=== PATIENT | female | born 1975 | race Two or more races ===

== ENCOUNTER 2016-10-12 09:17 | Emergency (ER) | payer MEDICAID ==
[~2016-10-12] VITALS: Ht 157.5 cm; Wt 90.7 kg
[~2016-10-12 09:17] MED LIST: CEPHALEXIN500 MG ORAL; CYCLOBENZAPRINE10 MG ORAL; IBUPROFEN600 M1 PO; IBUPROFEN600 MG ORAL; NKM; NORCO 5-325 TA1 EACH ORAL; NORCO1 EA ORAL; TRAMADOL HCL50 MG ORAL
[2016-10-12 09:26] VITALS: BP 114/68
[2016-10-12] MEDS ORDERED: AZITHROMYCIN250 MG ORAL (10:26)
[2016-10-12 10:45] VITALS: BP 123/79
--- NOTE | 2016-10-13 07:43 | Emergency Room Report ---
History of Present Illness General Chief Complaint: Upper Respiratory Illness Source: Patient Present Illness HPI 41-year-old female presents to ED complaining of cough and congestion x2 weeks. Notes a yellowish productive cough. Notes intermittent fevers and chills. Denies earache or sore throat. Denies sick contacts or recent travel. No other aggravating or relieving factors. Denies any other associated symptoms Allergies: Coded Allergies: NO KNOWN ALLERGIES (Verified Allergy, 05/30/13) Patient History Past Medical History: none Past Surgical History: none Pertinent Family History: none Social History: Denies: alcohol use, drug use, smoking Last Menstrual Period: 2 weeks ago Now: No Immunizations: UTD Reviewed Nursing Documentation: PMH: Agreed, PSxH: Agreed Nursing Documentation-PMH Past Medical History: No Stated History Hx COPD: No - BRONCHITIS Hx Neurological Problems: Yes - CHRONIC KNEE PROBLEMS Review of Systems All Other Systems: negative except mentioned in HPI Physical Exam Vital Signs Date Time Temp Pulse Resp B/P Pulse Ox O2 Delivery O2 Flow Rate FiO2 10/12/16 09:26 97.9 82 14 114/68 98 Room Air Sp02 EP Interpretation: reviewed, normal General Appearance: no apparent distress, alert, GCS 15, non-toxic Head: normocephalic Eyes: bilateral eye PERRL, bilateral eye normal inspection ENT: hearing grossly normal, normal pharynx, no angioedema, normal voice Neck: full range of motion, supple/symm/no masses Respiratory: chest non-tender, lungs clear, normal breath sounds, speaking full sentences Cardiovascular #1: regular rate, rhythm, no edema Gastrointestinal: normal bowel sounds, non tender, soft, non-distended, no guarding, no rebound Rectal: deferred Genitourinary: no CVA tenderness Musculoskeletal: normal inspection Neurologic: alert, oriented x3, responsive, motor strength/tone normal, sensory intact, speech normal Psychiatric: normal inspection Skin: normal inspection Lymphatic: normal inspection Medical Decision Making Diagnostic Impression: Primary Impression: Atypical pneumonia ER Course Hospital Course 41-year-old female presents to ED complaining of productive cough, intermittent chills, weakness Differential diagnoses include: URI, pharyngitis, otitis media, asthma Clinical course Patient placed on stretcher. After initial history, physical exam reveals a female in no acute distress. Bilateral TM unremarkable. No pharyngeal erythema. No tonsillar exudates. No lymphadenopathy. lungs clear. abdomen soft. Given productive cough with chills and symptoms persisting for 2 weeks. We'll treat his atypical pneumonia Diagnosis - atypical pneumonia Stable and discharged home with Rx Ariel. Instructed to followup with PMD. Return to ED if symptoms recur or worsen Last Vital Signs Date Time Temp Pulse Resp B/P Pulse Ox O2 Delivery O2 Flow Rate FiO2 10/12/16 10:45 81 14 123/79 97 Room Air 10/12/16 09:26 97.9 Status: improved Disposition: HOME, SELF-CARE Condition: Stable Scripts Azithromycin* (ZITHROMAX*) 250 Mg Tablet 250 MG ORAL DAILY, #6 TAB 0 Refills Take two tablets by mouth today, then take one tablet by mouth daily for four days Prov: MAK DELGADO M.D. 10/12/16 Patient Instructions: Community-Acquired Pneumonia, Adult, [id number] MAK DELGADO M.D. Oct 13, 2016 07:43
== END 2016-10-12 10:48 | disposition home or self-care (01) ==
LOC: EMR 09:58
DX: J18.9 Pneumonia, unspecified organism (principal)
CPT/HCPCS: 99283

== ENCOUNTER 2016-10-31 20:45 | Emergency (ER) | payer MEDICAID ==
[~2016-10-31] VITALS: Ht 157.5 cm; Wt 88.5 kg
[~2016-10-31 20:45] MED LIST changes: +AZITHROMYCIN250 MG ORAL
[2016-10-31] MEDS ORDERED: IBUPROFEN800 MG ORAL (21:56)
[2016-10-31] MEDS ORDERED: ROBAXIN-750750 MG PO (21:56)
[2016-10-31] MEDS ORDERED: PERCOCET 5-3251 EACH ORAL (21:56)
[2016-10-31] MEDS ORDERED: Oxycodone/Acetaminophen 5-325 ORAL ONE (22:00)
[2016-10-31] MEDS ORDERED: Ketorolac 60mg Inj IM ONE (22:00)
--- NOTE | 2016-10-31 22:05 | Emergency Room Report ---
History of Present Illness General Chief Complaint: Chest Pain Source: Patient, Medical Record Present Illness HPI 41 YO F with 2 weeks of left upper back pain, 8/10, worse with movement, reproducible, worse with "cold weather," worse in morning, better after moving around. 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 Been taking Ibuprofen. Last took yesterday, minimal improvement. Denies chest pain, SOB, abd pain Per EMR was here recently, tx for Atypical PNA with Azithro, finished that course. Has been here multiple times for various MSK type complaints. Denies CAD risk factors - denies HTN, DM, HLD, smoking, ETOH, drug use. Allergies: Coded Allergies: NO KNOWN ALLERGIES (Verified Allergy, 05/30/13) Patient History Past Medical History: none Past Surgical History: none Pertinent Family History: none Social History: Denies: alcohol use, drug use, smoking Last Menstrual Period: 10/28/2016 Now: No : 3 Para: 3 Immunizations: UTD Reviewed Nursing Documentation: PMH: Agreed, PSxH: Agreed Nursing Documentation-PMH Hx COPD: No - BRONCHITIS Hx Neurological Problems: Yes - CHRONIC KNEE PROBLEMS Review of Systems All Other Systems: negative except mentioned in HPI Physical Exam Vital Signs Date Time Temp Pulse Resp B/P Pulse Ox O2 Delivery O2 Flow Rate FiO2 10/31/16 21:18 97.7 78 18 128/81 100 Room Air Sp02 EP Interpretation: reviewed, normal General Appearance: normal inspection, well appearing, no apparent distress, alert, GCS 15, non-toxic Head: normocephalic, atraumatic Eyes: bilateral eye EOMI, bilateral eye PERRL ENT: normal ENT inspection, hearing grossly normal, normal voice Neck: normal inspection, full range of motion, supple, no bony tend Respiratory: normal inspection, lungs clear, normal breath sounds, no rhonchi, no respiratory distress, no retraction, no accessory muscle use, no wheezing Cardiovascular #1: regular rate, rhythm, no edema Gastrointestinal: normal inspection, normal bowel sounds, non tender, soft, no guarding, no hernia Genitourinary: no CVA tenderness Musculoskeletal: normal inspection, Debbie's Sign negative, other - Left upper back: Significant ttp left upper back, spasm/tightness. Worse with movement, palpation. Neurologic: normal inspection, alert, oriented x3, responsive, travel ot III-XII nml as tested, motor strength/tone normal, speech normal Psychiatric: normal inspection, judgement/insight normal, mood/affect normal Skin: normal inspection, normal color, no rash Medical Decision Making Diagnostic Impression: Primary Impression: Muscle spasm ER Course 41 YO F with MSK type pain to left upper back. Likely occupational related. Worse with movement, reproducible, and 2 weeks duration - so unlikely cardiac. ECG done as screening by RN/grocery stock clerk was NSR, no ischemia. No assoc fever/chills, cough, SOB so unlikely pleuritic or lung related. Was also just tx for PNA PO percocet and IM toradol given in ED Rx Ibuprofen/Robaxin combo with Perc as needed for severe pain Recommended PMD referral for pain emergency specialist DC home EKG Diagnostic Results Rate: normal Rhythm: NSR ST Segments: no acute changes ASA given to the pt in ED: No Last Vital Signs Date Time Temp Pulse Resp B/P Pulse Ox O2 Delivery O2 Flow Rate FiO2 10/31/16 21:18 97.7 78 18 128/81 100 Room Air Status: improved Disposition: HOME, SELF-CARE Condition: Improved Scripts Oxycodone/Acetaminophen 5-325* (PERCOCET 5-325 MG TABLET*) 1 Each Tablet 1 TAB ORAL BID Y for For Pain, #20 TAB Prov: ANITA MAYER M.D. 10/31/16 Methocarbamol* (ROBAXIN-750*) 750 Mg Tablet 750 MG PO TID, #30 TAB 0 Refills Prov: ANITA MAYER M.D. 10/31/16 Ibuprofen* (MOTRIN*) 800 Mg Tablet 800 MG ORAL THREE TIMES A DAY Y for For Pain, #30 TAB 0 Refills Prov: ANITA MAYER M.D. 10/31/16 Patient Instructions: Musculoskeletal Pain Additional Instructions: - Take high dose ibuprofen every 8 hours with Robaxin for pain - Continue to apply heat to area of pain - For severe pain, try 1 percocet twice a day - Follow up with your doctor for referral to aircraft painter apprentice ANITA MAYER M.D. Oct 31, 2016 22:05
[2016-10-31 22:40] VITALS: BP 120/78
[2016-10-31 22:44] VITALS: BP 120/78
== END 2016-10-31 22:44 | disposition home or self-care (01) ==
LOC: EMR 21:52
DX: M62.830 Muscle spasm of back (principal); M54.9 Dorsalgia, unspecified; Z87.01 Personal history of pneumonia (recurrent)
CPT/HCPCS: 96372; 99284

== ENCOUNTER 2017-03-12 09:51 | Emergency (ER) | payer MEDICAID ==
[~2017-03-12] VITALS: Ht 157.5 cm; Wt 88.5 kg
[~2017-03-12 09:51] MED LIST changes: +IBUPROFEN800 MG ORAL; +PERCOCET 5-3251 EACH ORAL; +ROBAXIN-750750 MG PO
[2017-03-12 10:02] VITALS: BP 123/80
--- NOTE | 2017-03-12 10:07 | Emergency Room Report ---
History of Present Illness General Chief Complaint: Upper Respiratory Illness Source: Patient Present Illness HPI Patient presents with cough and chest pain since last . She's not producing any phlegm. She has foul flavor in her mouth and thought she might have a fever. Her kids told her she did not have a fever. She hears a bubbling in her chest. This is worse with coughing. She's never used an inhaler before. She denies any pain or or edema. Pain in chest 4/10, somewhat pleuritic, more pressure. Not . No dysuria, rashes, headache. Allergies: Coded Allergies: NO KNOWN ALLERGIES (Verified Allergy, 05/30/13) Patient History Past Medical History: see triage record Social History: Denies: smoking Social History Narrative with kids Last Menstrual Period: 02/28/17 Now: No : 3 Para: 3 Reviewed Nursing Documentation: PMH: Agreed, PSxH: Agreed Nursing Documentation-PMH Past Medical History: No History, Except For Hx COPD: No - BRONCHITIS Hx Neurological Problems: Yes - CHRONIC KNEE PROBLEMS Review of Systems All Other Systems: negative except mentioned in HPI Physical Exam Vital Signs Date Time Temp Pulse Resp B/P Pulse Ox O2 Delivery O2 Flow Rate FiO2 03/12/17 09:52 98.8 90 20 123/80 97 Room Air Sp02 EP Interpretation: reviewed, normal General Appearance: well appearing, no apparent distress, GCS 15 Head: normocephalic Eyes: bilateral eye normal inspection ENT: normal pharynx, moist mucus membranes Neck: supple Respiratory: wheezing - post tussive wheezing Cardiovascular #1: regular rate, rhythm Cardiovascular #2: 2+ radial (R) Gastrointestinal: normal inspection, normal bowel sounds, non tender, no mass, non-distended Musculoskeletal: back normal, gait/station normal, normal range of motion Neurologic: alert, oriented x3, grossly normal Psychiatric: mood/affect normal Skin: normal inspection, warm/dry Medical Decision Making Diagnostic Impression: Primary Impression: Bronchospasm Additional Impression: Eosinophilia ER Course The patient presents with cough, wheezing and chest pain. She's never used an inhaler before. Her vital signs are tenths pulmonary embolus. Differential includes bronchitis, bronchospasm, new onset asthma amongst others. She is evaluated EKG, chest x-ray and also labs. Work up because this is new onset for her. She'll be treated with albuterol and Atrovent. Labs with eosinophilia. Solumedrol given. Repeat albuterol as still with some wheezes.. Improved. At d/c c/w throat itching. Exam no angioedema. Benadryl also added. Stable for outpatient observation and treatment. Laboratory Tests Test 03/12/17 10:37 White Blood Count 6.3 K/UL (4.8-10.8) Red Blood Count 5.04 M/UL (4.20-5.40) Hemoglobin 12.7 G/DL (12.0-16.0) Hematocrit 41.0 % (37.0-47.0) Mean Corpuscular Volume 81 FL (80-99) Mean Corpuscular Hemoglobin 25.1 PG (27.0-31.0) L Mean Corpuscular Hemoglobin Concent 30.9 G/DL (32.0-36.0) L Red Cell Distribution Width 15.5 % (11.6-14.8) H Platelet Count 312 K/UL (150-450) Mean Platelet Volume 6.6 FL (6.5-10.1) Neutrophils (%) (Auto) 43.3 % (45.0-75.0) L Lymphocytes (%) (Auto) 41.7 % (20.0-45.0) Monocytes (%) (Auto) 10.8 % (1.0-10.0) H Eosinophils (%) (Auto) 3.2 % (0.0-3.0) H Basophils (%) (Auto) 1.1 % (0.0-2.0) Sodium Level 139 mEQ/L (135-145) Potassium Level 4.1 mEQ/L (3.4-4.9) Chloride Level 102 mEQ/L (98-107) Carbon Dioxide Level 23 mEQ/L (20-30) Anion Gap 14 (5-15) Blood Urea Nitrogen 9 mg/dL (7-23) Creatinine 0.8 mg/dL (0.5-0.9) Estimate Glomerular Filtration Rate > 60 mL/min (>60) Glucose Level 135 mg/dL (74-106) H Calcium Level 8.8 mg/dL (8.6-10.2) Total Bilirubin < 0.2 mg/dL (0.0-1.2) Aspartate Amino Transferase (AST) 24 U/L (5-40) Alanine Aminotransferase (ALT) 22 U/L (3-33) Alkaline Phosphatase 100 U/L (35-104) Total Protein 7.5 g/dL (6.6-8.7) Albumin 3.9 g/dL (3.5-5.2) Globulin 3.6 g/dL Albumin/Globulin Ratio 1.0 (1.0-2.7) EKG Diagnostic Results Rate: normal Rhythm: NSR ST Segments: no acute changes Rhythm Strip Diag. Results EP Interpretation: yes Rhythm: NSR, no PVC's, no ectopy Chest X-Ray Diagnostic Results Chest X-Ray Diagnostic Results : Chest X-Ray Ordered: Yes # of Views/Limited/Complete: 1 View Indication: Shortness of Breath EP Interpretation: Yes Interpretation: no consolidation, no effusion, no pneumothorax, no acute cardiopulmonary disease Impression: No acute disease Interpreting ER Provider: Electronically signed by Dave Covington MD Last Vital Signs Date Time Temp Pulse Resp B/P Pulse Ox O2 Delivery O2 Flow Rate FiO2 03/12/17 15:15 98.8 89 20 145/73 98 Room Air Status: improved Disposition: HOME, SELF-CARE Condition: Improved Scripts Diphenhydramine Hcl* (BENADRYL*) 25 Mg Capsule 25 MG ORAL Q6H Y for Itching, #14 CAP Prov: Dave Covington M.D. 03/12/17 Albuterol Sulfate* (ALBUTEROL SULFATE MDI*) 8.5 Gm Hfa.aer.ad 2 PUFF INH Q6H, #1 EA 1 Refill Prov: Dave Covington M.D. 03/12/17 Codeine/Promethazine Hcl* (PROMETHAZINE-CODEINE SYRUP*) 118 Ml Syrup 5 ML ORAL Q6H Y for For Cough, #60 ML 0 Refills Prov: Dave Covington M.D. 03/12/17 Prednisone* (PREDNISONE*) 10 Mg Tablet 10 MG ORAL DAILY, #21 TAB 0 Refills 4 po QD X 2, 3 po QD X 2, 2 po QD X 2, 1 po QD X 4 Prov: Dave Covington M.D. 03/12/17 Dave Covington M.D. Mar 12, 2017 10:07
[2017-03-12] MEDS ORDERED: Ipratropium 0.02% Inh Soln 2.5ml UD HHN ONE (10:15)
[2017-03-12] MEDS ORDERED: Albuterol ud Inhalation HHN ONE ×2 (10:15→12:30)
[2017-03-12 10:59] VITALS: BP 118/85
[2017-03-12 11:29] LABS: BASOPHILS % (AUTO) 1.1 % (0.0-2.0); EOSINOPHILS % (AUTO) 3.2 % (0.0-3.0); LYMPHOCYTES % (AUTO) 41.7 % (20.0-45.0); MEAN CORPUSCULAR HEMOGLOBIN 25.1 PG (27.0-31.0); MEAN CORPUSCULAR HGB CONC 30.9 G/DL (32.0-36.0); MEAN CORPUSCULAR VOLUME 81 FL (80-99); MEAN PLATELET VOLUME 6.6 FL (6.5-10.1); MONOCYTES % (AUTO) 10.8 % (1.0-10.0); NEUTROPHILS % (AUTO) 43.3 % (45.0-75.0); PLATELET COUNT 312 K/UL (150-450); RED BLOOD COUNT 5.04 M/UL (4.20-5.40); RED CELL DISTRIBUTION WIDTH 15.5 % (11.6-14.8); WHITE BLOOD COUNT 6.3 K/UL (4.8-10.8)
[2017-03-12 11:31] LABS: ALANINE AMINOTRANSFERASE 22 U/L (3-33); ANION GAP 14 (5-15); ASPARTATE AMINO TRANSFERASE 24 U/L (5-40); CALCIUM 8.8 mg/dL (8.6-10.2); CARBON DIOXIDE 23 mEQ/L (20-30); CHLORIDE 102 mEQ/L (98-107); CREATININE 0.8 mg/dL (0.5-0.9); GLOMERULAR FILTRATION RATE > 60 mL/min (>60); HEMOLYSIS 13; POTASSIUM 4.1 mEQ/L (3.4-4.9); SODIUM 139 mEQ/L (135-145); TOTAL PROTEIN 7.5 g/dL (6.6-8.7)
--- NOTE | 2017-03-12 11:33 | Diagnostic Imaging Report ---
Indication: Cough Comparison: 01/03/15 2 views of the chest obtained. Findings: Cardiomediastinal silhouette and pulmonary vascularity are within normal limits for age. The diaphragmatic contour is smooth and costophrenic angles are sharp. No pleural effusions are identified. The bones are unremarkable. Impression: No acute disease
[2017-03-12] MEDS ORDERED: Solu-MEDROL 125mg Inj IVP ONE (12:30)
[2017-03-12] MEDS ORDERED: Promethazine/Codeine 5ml UD ORAL ONE (12:30)
[2017-03-12] MEDS ORDERED: PREDNISONE10 MG ORAL (12:56)
[2017-03-12] MEDS ORDERED: PROMETHAZINE-C118 M1 ORAL (12:56)
[2017-03-12] MEDS ORDERED: ALBUTEROL SULF8.5 GM INH (12:56)
[2017-03-12 13:48] VITALS: BP 151/75
[2017-03-12] MEDS ORDERED: BENADRYL25 MG ORAL (14:31)
[2017-03-12 15:15] VITALS: BP 145/73
== END 2017-03-12 15:19 | disposition home or self-care (01) ==
LOC: EMR 10:27
DX: J98.01 Acute bronchospasm (principal); D72.1 Eosinophilia; R07.9 Chest pain, unspecified
CPT/HCPCS: 36415; 71020; 80053; 85025; 93005; 94640; 96374; 96375; 99284; J2930

== ENCOUNTER → 2018-11-19 | Emergency (ER) | payer MEDICAID ==
[~2018-11-19] VITALS: Ht 157.5 cm; Wt 90.7 kg
[~2018-11-19] MED LIST changes: +ALBUTEROL SULF8.5 GM INH; +BACTROBAN CR1 APPLIC TOPIC; +BENADRYL25 MG ORAL; +Ketorolac 30mg Inj IM ONE; +PREDNISONE10 MG ORAL; +PROMETHAZINE-C118 M1 ORAL
[2018-11-19 14:23] VITALS: BP 151/92
--- NOTE | 2018-11-19 14:46 | Emergency Room Report ---
History of Present Illness General Chief Complaint: Pain Source: Medical Record Present Illness HPI 43-year-old female patient presents ER complaining of bilateral toe pain. Patient states pain is been present for the past 2 weeks following a "toe cleaning that she had. Reports that the lady who cleans her toes "cut her nails too short". Denies erythema or edema. Reports that she was sent to the ER by her physician for concern over possible gout. Denies history of gout. Denies fever, vomiting, chest pain. Denies other aggravating or relieving factors. Denies acute injury. Allergies: Coded Allergies: NO KNOWN ALLERGIES (Verified Allergy, 05/30/13) Patient History Past Medical History: see triage record Last Menstrual Period: 11/04/18 Reviewed Nursing Documentation: PMH: Agreed; PSxH: Agreed Nursing Documentation-PMH Past Medical History: No History, Except For Hx COPD: No - BRONCHITIS Hx Neurological Problems: Yes - CHRONIC KNEE PROBLEMS Review of Systems All Other Systems: negative except mentioned in HPI Physical Exam Vital Signs Date Time Temp Pulse Resp B/P (MAP) Pulse Ox O2 Delivery O2 Flow Rate FiO2 11/19/18 14:23 98.4 92 18 151/92 97 Room Air Sp02 EP Interpretation: reviewed, normal General Appearance: well appearing, no apparent distress, alert, GCS 15, non- toxic Head: normocephalic, atraumatic Eyes: bilateral eye normal inspection, bilateral eye PERRL ENT: hearing grossly normal, normal pharynx, no angioedema, normal voice, uvula midline, moist mucus membranes Neck: full range of motion, no bony tend Respiratory: lungs clear, normal breath sounds, no rhonchi, no respiratory distress, no accessory muscle use, no wheezing, speaking full sentences Cardiovascular #1: regular rate, rhythm, no edema Cardiovascular #2: 2+ dorsalis pedis (R), 2+ dorsalis pedis (L) Musculoskeletal: back normal, digits/nails normal, gait/station normal, normal range of motion, other - NVI, no gouty tophi, no overlying erythema or edema, no subungual hematoma, cuticle intact, no podgra, tender - Base of toenail of bilateral big toes, no erythema or edema Neurologic: alert, oriented x3, responsive, motor strength/tone normal, sensory intact Skin: other - No overlying erythema or edema, no gouty tophi Medical Decision Making PA Attestation Dr. Covington is my supervising Physician whom patient management has been discussed with. Diagnostic Impression: Primary Impression: Toe pain, bilateral ER Course Pt. presents to the ED c/o bilateral big toe pain. Ddx considered but are not limited to mechanical trauma, gout, cellulitis, arthritis. Vital signs: are WNL, pt. is afebrile ER COURSE: Pain likely secondary to toenails being "cut too short", this preceded symptom onset. No overlying erythema or edema, does not require oral antibiotics however will provide patient with topical antibiotics. Provide patient with pain medication in the ER. No gouty tophi, no overlying erythema or edema, pain at the base of the nail, no podagra, low suspicion for gout. ER precautions given. Follow-up with copy center operator, provided with contact information for podiatry specialist. Follow-up at scheduled appointment with primary care provider. DISCHARGE: At this time pt is stable for d/c to home. Patient is resting comfortably, in no acute distress, nontoxic appearing, talking without difficulty. Patient to take medications as instructed Will provide with patient care instructions and any necessary prescriptions. Care plan and follow-up instructions provided. Patient instructed to follow-up with primary care provider in 3 - 5 days. Patient questions asked and answered. Patient reports understanding and agreement to treatment plan. ER precautions given. Patient instructed to return to ER immediately for any new or worsening of symptoms including but not limited to increasing SOB, persistent fever, chest pain, intractable vomiting. - Please note that this Emergency Department Report was dictated using [employer] saw operator technology software, occasionally this can lead to erroneous entry secondary to interpretation by the dictation equipment. Last Vital Signs Date Time Temp Pulse Resp B/P (MAP) Pulse Ox O2 Delivery O2 Flow Rate FiO2 11/19/18 14:23 98.4 92 18 151/92 97 Room Air Status: improved Disposition: HOME, SELF-CARE Condition: Stable Scripts Ibuprofen* (MOTRIN*) 600 Mg Tablet 600 MG ORAL Q8H PRN for For Pain, #30 TAB 0 Refills Prov: Morales Granger P.A. 11/19/18 Mupirocin Calcium (Bactroban) 15 Gm Cream..g. 1 APPLIC TOPIC THREE TIMES A DAY, #15 GM Prov: Morales Granger.AJose Francisco 11/19/18 Patient Instructions: Ingrown Toenail Additional Instructions: Followup with primary care provider scheduled appointment. Follow-up with copy center operator. Take medications as directed. Patient questions asked and answered. ER precautions given, patient instructed to return to ER immediately for any new or worsening of symptoms. Morales Granger Nov 19, 2018 14:46
== END | disposition home or self-care (01) ==
LOC: EMR 14:58
DX: M79.675 Pain in left toe(s) (principal); M79.674 Pain in right toe(s)
CPT/HCPCS: 96372; 99291; J1885

== ENCOUNTER 2019-11-24 17:57 | Emergency (ER) | payer MEDICAID ==
[~2019-11-24] VITALS: Ht 167.6 cm; Wt 95.3 kg
[~2019-11-24 17:57] MED LIST changes: -Ketorolac 30mg Inj IM ONE
[2019-11-24 19:36] VITALS: BP 147/87
--- NOTE | 2019-11-24 19:36 | NUR ---
ED Nurse Note: pt ambulated into ed from home [place] rash on skin with pain over generalized body. Pt vss no ss of distress noted. No rash currently visible on face but pt provided pictures. Awaiting ERMD at bedside
--- NOTE | 2019-11-24 19:40 | NUR ---
ED Nurse Note: ERMD at bedside
--- NOTE | 2019-11-24 19:50 | Emergency Room Report ---
History of Present Illness General Chief Complaint: Skin Rash/Abscess Source: Patient Present Illness HPI 44-year-old female with no symptom past medical history who was recently seen for UTI here complaining of pruritus and rash all over her body after finishing Macrobid for UTI. Denies any anaphylaxis, asthma exacerbation, shortness of breath. Denies fever and chills or recent URI symptoms or recent travel. Denies any pain. Has not taken medication for symptom relief. Denies . COVID-19 risk:Contact w/high r: No COVID-19 risk:Travel to affect: No Has patient experienced rodriguez: No Allergies: Coded Allergies: NO KNOWN ALLERGIES (Verified Allergy, 05/30/13) Patient History Past Medical History: see triage record Past Surgical History: none Pertinent Family History: none Last Menstrual Period: 11/12/19 Now: No : 3 Para: 3 Immunizations: UTD Reviewed Nursing Documentation: PMH: Agreed; PSxH: Agreed Nursing Documentation-PMH Past Medical History: No Stated History Hx COPD: No - BRONCHITIS Hx Neurological Problems: Yes - CHRONIC KNEE PROBLEMS Review of Systems All Other Systems: negative except mentioned in HPI Physical Exam Vital Signs Date Time Temp Pulse Resp B/P (MAP) Pulse Ox O2 Delivery O2 Flow Rate FiO2 11/24/19 19:26 98.1 82 16 147/87 (107) 95 Room Air Sp02 EP Interpretation: reviewed, normal General Appearance: no apparent distress, alert, GCS 15, non-toxic Head: normocephalic, atraumatic Eyes: bilateral eye normal inspection, bilateral eye PERRL ENT: hearing grossly normal, normal pharynx, no angioedema, normal voice Neck: full range of motion, supple/symm/no masses Respiratory: chest non-tender, lungs clear, normal breath sounds, no rhonchi, no retraction, speaking full sentences Cardiovascular #1: regular rate, rhythm, no edema, no murmur Gastrointestinal: normal bowel sounds, non tender, soft, non-distended, no guarding, no rebound Rectal: deferred Genitourinary: no CVA tenderness Musculoskeletal: back normal Neurologic: alert, motor strength/tone normal, oriented x3, sensory intact, responsive, speech normal Psychiatric: judgement/insight normal, memory normal, mood/affect normal, no suicidal/homicidal ideation Skin: rash - Allergic urticaria Lymphatic: no adenopathy Medical Decision Making PA Attestation All my diagnosis and treatment plans were reviewed ad discussed with my supervising physician Dr. Bright Diagnostic Impression: Primary Impression: Allergic urticaria ER Course 44-year-old female with no symptom past medical history who was recently seen for UTI here complaining of pruritus and rash all over her body after finishing Macrobid for UTI. Denies any anaphylaxis, asthma exacerbation, shortness of breath. Denies fever and chills or recent URI symptoms or recent travel. Denies any pain. Has not taken medication for symptom relief. Denies . Ddx considered but are not limited to: Eczema, scabies, lice, allergic urticaria Vital signs: are WNL, pt. is afebrile H&PE are most consistent with: Allergic urticaria ORDERS: Prednisone, Benadryl, hydrocortisone cream ED INTERVENTIONS: None required at this time. DISCHARGE: At this time pt. is stable for d/c to home. Will provide printed patient care instructions, and any necessary prescriptions. Care plan and follow up instructions have been discussed with the patient prior to discharge. Follow-up with primary care provider, increase oral hydration, if anaphylaxis return to the emergency room Last Vital Signs Date Time Temp Pulse Resp B/P (MAP) Pulse Ox O2 Delivery O2 Flow Rate FiO2 11/24/19 19:26 98.1 82 16 147/87 (107) 95 Room Air Disposition: HOME, SELF-CARE Condition: Stable Scripts Hydrocortisone Acetate/Aloe V (Hydrocortisone-Aloe 0.5% Cream) 28.4 Gm Cream..g. 1 GM TP TID, #28 GM Prov: Geremias Montes 11/24/19 Diphenhydramine Hcl* (BENADRYL*) 25 Mg Capsule 25 MG ORAL Q6H PRN for Itching, #20 CAP Prov: Geremias Montes 11/24/19 Prednisone* (PREDNISONE*) 20 Mg Tablet 40 MG ORAL DAILY for 5 Days, #10 TAB Prov: Geremias Montes 11/24/19 Patient Instructions: Hives, [id number] Additional Instructions: Take medication as directed, follow-up primary care provider, increase oral hydration, Geremias Montes Nov 24, 2019 19:50
[2019-11-24] MEDS ORDERED: PREDNISONE20 MG ORAL (19:51)
[2019-11-24] MEDS ORDERED: HYDROCORTISON28.4 G4 TP (19:51)
[2019-11-24] MEDS ORDERED: BENADRYL25 MG ORAL (19:51)
[2019-11-24 19:58] VITALS: BP 147/87
--- NOTE | 2019-11-24 19:58 | NUR ---
ER DISCHARGE NOTE: Patient is cleared to be discharged home per ERMD, pt is aox4, on room air, with stable vital signs. pt was given dc and prescription instructions, pt was able to verbalize understanding, pt id band removed. pt is able to ambulate with steady gait. pt took all belongings.
== END 2019-11-24 19:58 | disposition home or self-care (01) ==
LOC: EMR 19:35
DX: L50.0 Allergic urticaria (principal)
CPT/HCPCS: 99282